=== PATIENT | male | born 1980 | race Caucasian/White ===

== ENCOUNTER 2020-02-07 08:27 | Outpatient (CLI) | payer OTHER ==
[2020-02-07] MEDS ORDERED: LIDOcaine 2% 5ml jelly ONE (09:06)
== END 2020-02-07 11:09 | disposition home or self-care (01) ==
LOC: WOUND CARE 08:27 → EDSTATUS 08:40 → WOUND CARE 11:09
PROVIDERS: ATTEND Nurse Practitioner Family
DX: T81.89XA Other complications of procedures, not elsewhere classified, initial encounter (principal); E10.622 Type 1 diabetes mellitus with other skin ulcer; L98.492 Non-pressure chronic ulcer of skin of other sites with fat layer exposed; N49.2 Inflammatory disorders of scrotum; I10 Essential (primary) hypertension; L73.2 Hidradenitis suppurativa; L84 Corns and callosities; F17.200 Nicotine dependence, unspecified, uncomplicated; F41.9 Anxiety disorder, unspecified; F32.9 Major depressive disorder, single episode, unspecified; Z86.718 Personal history of other venous thrombosis and embolism; Y83.8 Other surgical procedures as the cause of abnormal reaction of the patient, or of later complication, without mention of misadventure at the time of the procedure; Y92.238 Other place in hospital as the place of occurrence of the external cause
CPT/HCPCS: 82948; G0463

== ENCOUNTER 2020-02-08 10:19 | Outpatient (CLI) | payer OTHER ==
[2020-02-08] MEDS ORDERED: LIDOcaine 2% 5ml jelly ONE ×2 (10:51)
== END 2020-02-08 12:30 | disposition home or self-care (01) ==
LOC: WOUND CARE 10:19 → EDSTATUS 10:20 → WOUND CARE 12:30
PROVIDERS: ATTEND Nurse Practitioner
DX: T81.89XD Other complications of procedures, not elsewhere classified, subsequent encounter (principal); E10.622 Type 1 diabetes mellitus with other skin ulcer; L98.492 Non-pressure chronic ulcer of skin of other sites with fat layer exposed; N49.2 Inflammatory disorders of scrotum; I10 Essential (primary) hypertension; L73.2 Hidradenitis suppurativa; L84 Corns and callosities; F17.200 Nicotine dependence, unspecified, uncomplicated; F41.9 Anxiety disorder, unspecified; F32.9 Major depressive disorder, single episode, unspecified; Z86.718 Personal history of other venous thrombosis and embolism; Y83.8 Other surgical procedures as the cause of abnormal reaction of the patient, or of later complication, without mention of misadventure at the time of the procedure
CPT/HCPCS: 87070; 87075; 87102; G0463

== ENCOUNTER 2020-02-11 11:38 | Outpatient (CLI) | payer OTHER ==
[2020-02-11] MEDS ORDERED: LIDOcaine 2% 5ml jelly ONE (13:12)
== END 2020-02-11 13:00 | disposition home or self-care (01) ==
LOC: WOUND CARE 11:38 → EDSTATUS 13:00 → WOUND CARE 13:00
PROVIDERS: ATTEND Nurse Practitioner
DX: T81.89XD Other complications of procedures, not elsewhere classified, subsequent encounter (principal); E10.622 Type 1 diabetes mellitus with other skin ulcer; L98.492 Non-pressure chronic ulcer of skin of other sites with fat layer exposed; N49.2 Inflammatory disorders of scrotum; I10 Essential (primary) hypertension; L73.2 Hidradenitis suppurativa; L84 Corns and callosities; F17.200 Nicotine dependence, unspecified, uncomplicated; F41.9 Anxiety disorder, unspecified; F32.9 Major depressive disorder, single episode, unspecified; Z86.718 Personal history of other venous thrombosis and embolism; Y83.8 Other surgical procedures as the cause of abnormal reaction of the patient, or of later complication, without mention of misadventure at the time of the procedure
CPT/HCPCS: 97597; 97598

== ENCOUNTER 2020-02-14 13:03 | Outpatient (CLI) | payer OTHER ==
[2020-02-14] MEDS ORDERED: LIDOcaine 2% 5ml jelly ONE (14:34)
== END 2020-02-14 15:40 | disposition home or self-care (01) ==
LOC: WOUND CARE 13:03
PROVIDERS: ATTEND Nurse Practitioner
DX: T81.89XD Other complications of procedures, not elsewhere classified, subsequent encounter (principal); E10.622 Type 1 diabetes mellitus with other skin ulcer; L98.492 Non-pressure chronic ulcer of skin of other sites with fat layer exposed; N49.2 Inflammatory disorders of scrotum; I10 Essential (primary) hypertension; L73.2 Hidradenitis suppurativa; L84 Corns and callosities; F17.200 Nicotine dependence, unspecified, uncomplicated; F41.9 Anxiety disorder, unspecified; F32.9 Major depressive disorder, single episode, unspecified; Z86.718 Personal history of other venous thrombosis and embolism; Y83.8 Other surgical procedures as the cause of abnormal reaction of the patient, or of later complication, without mention of misadventure at the time of the procedure
CPT/HCPCS: 97597; 97598

== ENCOUNTER 2020-02-18 11:35 | Day surgery (SDC) | payer OTHER ==
[2020-02-18] MEDS ORDERED: LIDOcaine 2% 5ml jelly ONE (12:25)
== END 2020-02-18 13:07 | disposition home or self-care (01) ==
LOC: WOUND CARE 11:35
PROVIDERS: ATTEND Nurse Practitioner
DX: T81.89XD Other complications of procedures, not elsewhere classified, subsequent encounter (principal); E10.622 Type 1 diabetes mellitus with other skin ulcer; L98.492 Non-pressure chronic ulcer of skin of other sites with fat layer exposed; N49.2 Inflammatory disorders of scrotum; I10 Essential (primary) hypertension; L73.2 Hidradenitis suppurativa; L84 Corns and callosities; F17.200 Nicotine dependence, unspecified, uncomplicated; F41.9 Anxiety disorder, unspecified; F32.9 Major depressive disorder, single episode, unspecified; Z86.718 Personal history of other venous thrombosis and embolism; Y83.8 Other surgical procedures as the cause of abnormal reaction of the patient, or of later complication, without mention of misadventure at the time of the procedure
CPT/HCPCS: 97597; 97598

== ENCOUNTER 2020-02-22 14:10 | Day surgery (SDC) | payer OTHER ==
[2020-02-22] MEDS ORDERED: LIDOcaine 2% 5ml jelly ONE (15:20)
== END 2020-02-22 15:58 | disposition home or self-care (01) ==
LOC: WOUND CARE 14:10
PROVIDERS: ATTEND Nurse Practitioner
DX: T81.89XD Other complications of procedures, not elsewhere classified, subsequent encounter (principal); E10.622 Type 1 diabetes mellitus with other skin ulcer; L98.492 Non-pressure chronic ulcer of skin of other sites with fat layer exposed; N49.2 Inflammatory disorders of scrotum; I10 Essential (primary) hypertension; L73.2 Hidradenitis suppurativa; L84 Corns and callosities; F17.200 Nicotine dependence, unspecified, uncomplicated; F41.9 Anxiety disorder, unspecified; F32.9 Major depressive disorder, single episode, unspecified; Z86.718 Personal history of other venous thrombosis and embolism; Y83.8 Other surgical procedures as the cause of abnormal reaction of the patient, or of later complication, without mention of misadventure at the time of the procedure
CPT/HCPCS: 97597; 97598

== ENCOUNTER 2020-02-25 14:23 | Day surgery (SDC) | payer OTHER ==
[2020-02-25] MEDS ORDERED: LIDOcaine 2% 5ml jelly ONE (15:14)
== END 2020-02-25 16:20 | disposition home or self-care (01) ==
LOC: WOUND CARE 14:23
PROVIDERS: ATTEND Nurse Practitioner
DX: T81.89XD Other complications of procedures, not elsewhere classified, subsequent encounter (principal); E10.622 Type 1 diabetes mellitus with other skin ulcer; L98.492 Non-pressure chronic ulcer of skin of other sites with fat layer exposed; N49.2 Inflammatory disorders of scrotum; I10 Essential (primary) hypertension; L73.2 Hidradenitis suppurativa; L84 Corns and callosities; F17.200 Nicotine dependence, unspecified, uncomplicated; F41.9 Anxiety disorder, unspecified; F32.9 Major depressive disorder, single episode, unspecified; Z86.718 Personal history of other venous thrombosis and embolism; Y83.8 Other surgical procedures as the cause of abnormal reaction of the patient, or of later complication, without mention of misadventure at the time of the procedure
CPT/HCPCS: 97597; 97598

== ENCOUNTER 2020-03-03 14:04 | Day surgery (SDC) | payer OTHER ==
[2020-03-03] MEDS ORDERED: LIDOcaine 2% 5ml jelly ONE (14:44)
== END 2020-03-03 15:56 | disposition home or self-care (01) ==
LOC: WOUND CARE 14:04
PROVIDERS: ATTEND Nurse Practitioner
DX: T81.89XD Other complications of procedures, not elsewhere classified, subsequent encounter (principal); E10.622 Type 1 diabetes mellitus with other skin ulcer; L98.492 Non-pressure chronic ulcer of skin of other sites with fat layer exposed; N49.2 Inflammatory disorders of scrotum; I10 Essential (primary) hypertension; L73.2 Hidradenitis suppurativa; L84 Corns and callosities; F17.200 Nicotine dependence, unspecified, uncomplicated; F41.9 Anxiety disorder, unspecified; F32.9 Major depressive disorder, single episode, unspecified; Z86.718 Personal history of other venous thrombosis and embolism; Y83.8 Other surgical procedures as the cause of abnormal reaction of the patient, or of later complication, without mention of misadventure at the time of the procedure
CPT/HCPCS: 97597; 97598

== ENCOUNTER 2020-03-08 08:18 | Day surgery (SDC) | payer OTHER ==
[2020-03-08] MEDS ORDERED: LIDOcaine 2% 5ml jelly ONE (08:34)
== END 2020-03-08 09:20 | disposition home or self-care (01) ==
LOC: WOUND CARE 08:18
PROVIDERS: ATTEND Nurse Practitioner
DX: T81.89XD Other complications of procedures, not elsewhere classified, subsequent encounter (principal); E10.622 Type 1 diabetes mellitus with other skin ulcer; L98.492 Non-pressure chronic ulcer of skin of other sites with fat layer exposed; N49.2 Inflammatory disorders of scrotum; I10 Essential (primary) hypertension; L73.2 Hidradenitis suppurativa; L84 Corns and callosities; F17.200 Nicotine dependence, unspecified, uncomplicated; F41.9 Anxiety disorder, unspecified; F32.9 Major depressive disorder, single episode, unspecified; Z86.718 Personal history of other venous thrombosis and embolism; Y83.8 Other surgical procedures as the cause of abnormal reaction of the patient, or of later complication, without mention of misadventure at the time of the procedure
CPT/HCPCS: 36416; 82948; 97597

== ENCOUNTER 2020-03-15 09:30 | Day surgery (SDC) | payer OTHER ==
[2020-03-15] MEDS ORDERED: LIDOcaine 2% 5ml jelly ONE (10:29)
== END 2020-03-15 11:30 | disposition home or self-care (01) ==
LOC: WOUND CARE 09:30
PROVIDERS: ATTEND Nurse Practitioner
DX: T81.89XD Other complications of procedures, not elsewhere classified, subsequent encounter (principal); E10.622 Type 1 diabetes mellitus with other skin ulcer; L98.492 Non-pressure chronic ulcer of skin of other sites with fat layer exposed; N49.2 Inflammatory disorders of scrotum; I10 Essential (primary) hypertension; L73.2 Hidradenitis suppurativa; L84 Corns and callosities; F17.200 Nicotine dependence, unspecified, uncomplicated; F41.9 Anxiety disorder, unspecified; F32.9 Major depressive disorder, single episode, unspecified; Z86.718 Personal history of other venous thrombosis and embolism; Y83.8 Other surgical procedures as the cause of abnormal reaction of the patient, or of later complication, without mention of misadventure at the time of the procedure
CPT/HCPCS: 97597

== ENCOUNTER 2020-03-22 10:37 | Day surgery (SDC) | payer OTHER ==
[2020-03-22] MEDS ORDERED: LIDOcaine 2% 5ml jelly ONE (11:14)
== END 2020-03-22 12:42 | disposition home or self-care (01) ==
LOC: WOUND CARE 10:37
PROVIDERS: ATTEND Nurse Practitioner
DX: T81.89XD Other complications of procedures, not elsewhere classified, subsequent encounter (principal); E10.622 Type 1 diabetes mellitus with other skin ulcer; L98.492 Non-pressure chronic ulcer of skin of other sites with fat layer exposed; N49.2 Inflammatory disorders of scrotum; I10 Essential (primary) hypertension; L73.2 Hidradenitis suppurativa; L84 Corns and callosities; F17.200 Nicotine dependence, unspecified, uncomplicated; F41.9 Anxiety disorder, unspecified; F32.9 Major depressive disorder, single episode, unspecified; Z86.718 Personal history of other venous thrombosis and embolism; Y83.8 Other surgical procedures as the cause of abnormal reaction of the patient, or of later complication, without mention of misadventure at the time of the procedure
CPT/HCPCS: 97597

== ENCOUNTER 2020-03-28 08:40 | Day surgery (SDC) | payer OTHER ==
[2020-03-28] MEDS ORDERED: LIDOcaine 2% 5ml jelly ONE (08:50)
== END 2020-03-28 10:22 | disposition home or self-care (01) ==
LOC: WOUND CARE 08:40
PROVIDERS: ATTEND Nurse Practitioner
DX: T81.89XD Other complications of procedures, not elsewhere classified, subsequent encounter (principal); E10.622 Type 1 diabetes mellitus with other skin ulcer; L98.492 Non-pressure chronic ulcer of skin of other sites with fat layer exposed; N49.2 Inflammatory disorders of scrotum; I10 Essential (primary) hypertension; L73.2 Hidradenitis suppurativa; L84 Corns and callosities; F17.200 Nicotine dependence, unspecified, uncomplicated; F41.9 Anxiety disorder, unspecified; F32.9 Major depressive disorder, single episode, unspecified; Z86.718 Personal history of other venous thrombosis and embolism; Y83.8 Other surgical procedures as the cause of abnormal reaction of the patient, or of later complication, without mention of misadventure at the time of the procedure
CPT/HCPCS: 97597

== ENCOUNTER 2020-04-05 09:13 | Outpatient (CLI) | payer OTHER ==
[2020-04-05] MEDS ORDERED: LIDOcaine 2% 5ml jelly ONE (09:50)
== END 2020-04-05 23:59 | disposition home or self-care (01) ==
LOC: WOUND CARE 09:13
PROVIDERS: ATTEND Nurse Practitioner
DX: T81.89XD Other complications of procedures, not elsewhere classified, subsequent encounter (principal); E10.622 Type 1 diabetes mellitus with other skin ulcer; L98.492 Non-pressure chronic ulcer of skin of other sites with fat layer exposed; N49.2 Inflammatory disorders of scrotum; I10 Essential (primary) hypertension; L73.2 Hidradenitis suppurativa; L84 Corns and callosities; F17.200 Nicotine dependence, unspecified, uncomplicated; F41.9 Anxiety disorder, unspecified; F32.9 Major depressive disorder, single episode, unspecified; Z86.718 Personal history of other venous thrombosis and embolism; Y83.8 Other surgical procedures as the cause of abnormal reaction of the patient, or of later complication, without mention of misadventure at the time of the procedure
CPT/HCPCS: 82948; 97597

== ENCOUNTER → 2020-04-14 | Outpatient (CLI) | payer OTHER ==
[~2020-04-14] MED LIST: LIDOcaine 2% 5ml jelly ONE
== END | disposition home or self-care (01) ==
LOC: WOUND CARE 13:23
PROVIDERS: ATTEND Nurse Practitioner
DX: T81.89XD Other complications of procedures, not elsewhere classified, subsequent encounter (principal); E10.622 Type 1 diabetes mellitus with other skin ulcer; L98.492 Non-pressure chronic ulcer of skin of other sites with fat layer exposed; N49.2 Inflammatory disorders of scrotum; I10 Essential (primary) hypertension; L73.2 Hidradenitis suppurativa; L84 Corns and callosities; F17.200 Nicotine dependence, unspecified, uncomplicated; F41.9 Anxiety disorder, unspecified; F32.9 Major depressive disorder, single episode, unspecified; Z86.718 Personal history of other venous thrombosis and embolism; Y83.8 Other surgical procedures as the cause of abnormal reaction of the patient, or of later complication, without mention of misadventure at the time of the procedure
CPT/HCPCS: 97597

== ENCOUNTER → 2020-04-21 | Outpatient (CLI) | payer OTHER | END | disposition home or self-care (01) | LOC: WOUND CARE 07:47 → EDSTATUS 08:00 | PROVIDERS: ATTEND Nurse Practitioner | DX: T81.89XD Other complications of procedures, not elsewhere classified, subsequent encounter (principal); E10.622 Type 1 diabetes mellitus with other skin ulcer; L98.492 Non-pressure chronic ulcer of skin of other sites with fat layer exposed; N49.2 Inflammatory disorders of scrotum; I10 Essential (primary) hypertension; L73.2 Hidradenitis suppurativa; L84 Corns and callosities; F17.200 Nicotine dependence, unspecified, uncomplicated; F41.9 Anxiety disorder, unspecified; F32.9 Major depressive disorder, single episode, unspecified; Z86.718 Personal history of other venous thrombosis and embolism; Y83.8 Other surgical procedures as the cause of abnormal reaction of the patient, or of later complication, without mention of misadventure at the time of the procedure | CPT/HCPCS: 11042 ==

== ENCOUNTER 2020-04-28 08:41 | Outpatient (CLI) | payer OTHER ==
[2020-04-28] MEDS ORDERED: LIDOcaine 2% 5ml jelly ONE (09:02)
[2020-04-28] MEDS ORDERED: LIDOcaine 1% w/epiNEPHrine 1:200,000 30ml vial ONE (10:14)
== END 2020-04-28 23:59 | disposition home or self-care (01) ==
LOC: WOUND CARE 08:41
PROVIDERS: ATTEND Nurse Practitioner
DX: T81.89XD Other complications of procedures, not elsewhere classified, subsequent encounter (principal); E10.622 Type 1 diabetes mellitus with other skin ulcer; L98.492 Non-pressure chronic ulcer of skin of other sites with fat layer exposed; N49.2 Inflammatory disorders of scrotum; I10 Essential (primary) hypertension; L73.2 Hidradenitis suppurativa; F17.200 Nicotine dependence, unspecified, uncomplicated; F41.9 Anxiety disorder, unspecified; F32.9 Major depressive disorder, single episode, unspecified; Z86.718 Personal history of other venous thrombosis and embolism; Y83.8 Other surgical procedures as the cause of abnormal reaction of the patient, or of later complication, without mention of misadventure at the time of the procedure
CPT/HCPCS: G0463

== ENCOUNTER 2020-05-05 08:13 | Outpatient (CLI) | payer OTHER ==
[2020-05-05] MEDS ORDERED: LIDOcaine 2% 5ml jelly ONE (08:23)
== END 2020-05-05 23:59 | disposition home or self-care (01) ==
LOC: WOUND CARE 08:13
PROVIDERS: ATTEND Nurse Practitioner
DX: T81.89XD Other complications of procedures, not elsewhere classified, subsequent encounter (principal); E10.622 Type 1 diabetes mellitus with other skin ulcer; L98.492 Non-pressure chronic ulcer of skin of other sites with fat layer exposed; N49.2 Inflammatory disorders of scrotum; I10 Essential (primary) hypertension; L73.2 Hidradenitis suppurativa; L84 Corns and callosities; F17.200 Nicotine dependence, unspecified, uncomplicated; F41.9 Anxiety disorder, unspecified; F32.9 Major depressive disorder, single episode, unspecified; Z86.718 Personal history of other venous thrombosis and embolism; Y83.8 Other surgical procedures as the cause of abnormal reaction of the patient, or of later complication, without mention of misadventure at the time of the procedure
CPT/HCPCS: 97597

== ENCOUNTER 2020-05-10 08:18 | Outpatient (CLI) | payer OTHER ==
[2020-05-10] MEDS ORDERED: LIDOcaine 2% 5ml jelly ONE (08:32)
== END 2020-05-10 23:59 | disposition home or self-care (01) ==
LOC: WOUND CARE 08:18
PROVIDERS: ATTEND Nurse Practitioner
DX: T81.89XD Other complications of procedures, not elsewhere classified, subsequent encounter (principal); E10.622 Type 1 diabetes mellitus with other skin ulcer; L98.492 Non-pressure chronic ulcer of skin of other sites with fat layer exposed; N49.2 Inflammatory disorders of scrotum; I10 Essential (primary) hypertension; L73.2 Hidradenitis suppurativa; L84 Corns and callosities; F17.200 Nicotine dependence, unspecified, uncomplicated; F41.9 Anxiety disorder, unspecified; F32.9 Major depressive disorder, single episode, unspecified; Z86.718 Personal history of other venous thrombosis and embolism; Y83.8 Other surgical procedures as the cause of abnormal reaction of the patient, or of later complication, without mention of misadventure at the time of the procedure
CPT/HCPCS: 11042

== ENCOUNTER 2020-05-17 07:59 | Outpatient (CLI) | payer OTHER ==
[2020-05-17] MEDS ORDERED: LIDOcaine 2% 5ml jelly ONE ×2 (08:17→10:53)
== END 2020-05-17 23:59 | disposition home or self-care (01) ==
LOC: WOUND CARE 07:59 → EDSTATUS 08:00 → WOUND CARE 23:59
PROVIDERS: ATTEND Nurse Practitioner
DX: T81.89XD Other complications of procedures, not elsewhere classified, subsequent encounter (principal); E10.622 Type 1 diabetes mellitus with other skin ulcer; L98.492 Non-pressure chronic ulcer of skin of other sites with fat layer exposed; N49.2 Inflammatory disorders of scrotum; I10 Essential (primary) hypertension; L73.2 Hidradenitis suppurativa; L84 Corns and callosities; F17.200 Nicotine dependence, unspecified, uncomplicated; F41.9 Anxiety disorder, unspecified; F32.9 Major depressive disorder, single episode, unspecified; Z86.718 Personal history of other venous thrombosis and embolism; Y83.8 Other surgical procedures as the cause of abnormal reaction of the patient, or of later complication, without mention of misadventure at the time of the procedure
CPT/HCPCS: 11042; 97597

== ENCOUNTER 2020-05-23 08:11 | Outpatient (CLI) | payer OTHER | END 2020-05-23 23:59 | disposition home or self-care (01) | LOC: WOUND CARE 08:11 | PROVIDERS: ATTEND Nurse Practitioner | DX: T81.89XD Other complications of procedures, not elsewhere classified, subsequent encounter (principal); E10.622 Type 1 diabetes mellitus with other skin ulcer; L98.492 Non-pressure chronic ulcer of skin of other sites with fat layer exposed; N49.2 Inflammatory disorders of scrotum; I10 Essential (primary) hypertension; L73.2 Hidradenitis suppurativa; L84 Corns and callosities; F17.200 Nicotine dependence, unspecified, uncomplicated; F41.9 Anxiety disorder, unspecified; F32.9 Major depressive disorder, single episode, unspecified; Z86.718 Personal history of other venous thrombosis and embolism; Y83.8 Other surgical procedures as the cause of abnormal reaction of the patient, or of later complication, without mention of misadventure at the time of the procedure | CPT/HCPCS: G0463 ==

== ENCOUNTER 2020-05-30 08:05 | Outpatient (CLI) | payer OTHER ==
[2020-05-30] MEDS ORDERED: LIDOcaine 2% 5ml jelly ONE ×2 (08:46→09:30)
[2020-05-30] MEDS ORDERED: LIDOcaine 1% w/epiNEPHrine 1:200,000 30ml vial ONE (09:06)
== END 2020-05-30 23:59 | disposition home or self-care (01) ==
LOC: WOUND CARE 08:05
PROVIDERS: ATTEND Nurse Practitioner
DX: T81.89XA Other complications of procedures, not elsewhere classified, initial encounter (principal); T81.89XD Other complications of procedures, not elsewhere classified, subsequent encounter; E10.622 Type 1 diabetes mellitus with other skin ulcer; L98.492 Non-pressure chronic ulcer of skin of other sites with fat layer exposed; N49.2 Inflammatory disorders of scrotum; I10 Essential (primary) hypertension; L73.2 Hidradenitis suppurativa; L84 Corns and callosities; F17.200 Nicotine dependence, unspecified, uncomplicated; F41.9 Anxiety disorder, unspecified; F32.9 Major depressive disorder, single episode, unspecified; Z86.718 Personal history of other venous thrombosis and embolism; Y83.8 Other surgical procedures as the cause of abnormal reaction of the patient, or of later complication, without mention of misadventure at the time of the procedure; Y92.238 Other place in hospital as the place of occurrence of the external cause
CPT/HCPCS: 10060; 36416; 82948

== ENCOUNTER 2020-06-05 09:25 | Outpatient (CLI) | payer OTHER ==
[2020-06-05] MEDS ORDERED: LIDOcaine 2% 5ml jelly ONE ×2 (09:47)
== END 2020-06-05 23:59 | disposition home or self-care (01) ==
LOC: WOUND CARE 09:25
PROVIDERS: ATTEND Nurse Practitioner Family
DX: T81.89XD Other complications of procedures, not elsewhere classified, subsequent encounter (principal); E10.622 Type 1 diabetes mellitus with other skin ulcer; L98.492 Non-pressure chronic ulcer of skin of other sites with fat layer exposed; N49.2 Inflammatory disorders of scrotum; I10 Essential (primary) hypertension; L73.2 Hidradenitis suppurativa; L84 Corns and callosities; F17.200 Nicotine dependence, unspecified, uncomplicated; F41.9 Anxiety disorder, unspecified; F32.9 Major depressive disorder, single episode, unspecified; Z86.718 Personal history of other venous thrombosis and embolism; Y83.8 Other surgical procedures as the cause of abnormal reaction of the patient, or of later complication, without mention of misadventure at the time of the procedure
CPT/HCPCS: 82948; 87070; 87075; 87077; 87186; G0463

== ENCOUNTER 2020-06-13 07:56 | Outpatient (CLI) | payer OTHER ==
[2020-06-13] MEDS ORDERED: LIDOcaine 2% 5ml jelly ONE (08:35)
== END 2020-06-13 23:59 | disposition home or self-care (01) ==
LOC: WOUND CARE 07:56
PROVIDERS: ATTEND Nurse Practitioner Family
DX: T81.89XD Other complications of procedures, not elsewhere classified, subsequent encounter (principal); E10.622 Type 1 diabetes mellitus with other skin ulcer; L98.492 Non-pressure chronic ulcer of skin of other sites with fat layer exposed; N49.2 Inflammatory disorders of scrotum; I10 Essential (primary) hypertension; L73.2 Hidradenitis suppurativa; L84 Corns and callosities; F17.200 Nicotine dependence, unspecified, uncomplicated; F41.9 Anxiety disorder, unspecified; F32.9 Major depressive disorder, single episode, unspecified; Z86.718 Personal history of other venous thrombosis and embolism; Y83.8 Other surgical procedures as the cause of abnormal reaction of the patient, or of later complication, without mention of misadventure at the time of the procedure
CPT/HCPCS: G0463

== ENCOUNTER 2020-06-20 07:53 | Outpatient (CLI) | payer OTHER ==
[2020-06-20] MEDS ORDERED: LIDOcaine 2% 5ml jelly ONE (08:11)
== END 2020-06-20 23:59 | disposition home or self-care (01) ==
LOC: WOUND CARE 07:53
PROVIDERS: ATTEND Nurse Practitioner
DX: T81.89XD Other complications of procedures, not elsewhere classified, subsequent encounter (principal); E10.622 Type 1 diabetes mellitus with other skin ulcer; L98.492 Non-pressure chronic ulcer of skin of other sites with fat layer exposed; N49.2 Inflammatory disorders of scrotum; I10 Essential (primary) hypertension; L73.2 Hidradenitis suppurativa; L84 Corns and callosities; F17.200 Nicotine dependence, unspecified, uncomplicated; F41.9 Anxiety disorder, unspecified; F32.9 Major depressive disorder, single episode, unspecified; Z86.718 Personal history of other venous thrombosis and embolism; Y83.8 Other surgical procedures as the cause of abnormal reaction of the patient, or of later complication, without mention of misadventure at the time of the procedure
CPT/HCPCS: G0463